=== PATIENT | male | born 1975 | race Caucasian/White ===

== ENCOUNTER 2024-11-25 08:20 | Emergency (ER) | payer OTHER, SELFPAY ==
--- NOTE | ~2024-11-25 | XR_ITS ---
EXAMINATION: XR foot LT min 3V DATE: 11/25/2024 09:00 INDICATION: Left heel and posterior ankle pain TECHNIQUE: Dorsoplantar, two oblique and lateral views of the left foot were obtained. COMPARISON: Left ankle radiograph dated 11/25/2024 FINDINGS: Bone alignment is normal. No fracture. Joint spaces are relatively preserved throughout. Achilles and plantar calcaneal spurs. No periosteal reaction or cortical erosions. Ankle joint effusion. Mild sof t tissue swelling about the lateral malleolus. IMPRESSION: 1. Left ankle joint effusion and posterior calcaneal enthesophytes. No acute osseous abnormality. Reviewed, dictated and finalized at location A. IMPRESSION: 1. Left ankle joint effusion and posterior calcaneal enthesophytes. No acute os seous abnormality.
--- NOTE | ~2024-11-25 | XR_ITS ---
EXAMINATION: XR ankle LT min 3V DATE: 11/25/2024 08:52 INDICATION: Posterior left ankle and heel pain TECHNIQUE: Anteroposterior, oblique, mortise, and lateral views of the left ankle were obtained. COMPARISON: None. FINDINGS: Alignment is normal. No fracture. Joint spaces are well maintained. Achilles and plantar calcaneal s purs. Large left ankle joint effusion with increased density anterior to the tibiotalar joint line. S oft tissue swelling about the lateral malleolus. IMPRESSION: 1. Left ankle joint effusion. No acute osseous abnormality. Reviewed, dictated and finalized at location A.
[2024-11-25 08:30] VITALS: BP 130/88; PULSE 72; RESP 16; TEMP 36.8; O2SAT 100
--- NOTE | 2024-11-25 08:30 | ED_ITS ---
HPI - General Adult General Chief complaint: Extremity Injury, Lower Stated complaint: Injured Left Ankle Time Seen by Provider: 11/25/24 08:30 Source: patient Mode of arrival: ambulatory Limitations: no limitations History of Present Illness HPI narrative: 49-year-old male patient presents to the [facility] with complaints of left ankle/ foot pain that started overnight last night. Patient states he did walk about a mi with his yesterday. Patient states this is not uncommon for him and does typically walk nightly. Patient states he woke up in the middle night with left foot/ ankle pain. Patient states he did take a hydrocodone that he had left over and put a lidocaine patch on it and wrapped it with an Kwesi wrap last night. Patient states it is more painful when trying to put weight and walk on it. Patient did have heart surgery for valve replacement back in August. Denies any chest pain or shortness of breath at this time. Denies any known injury that he is aware of. Related Data Home Medications ?Medication ?Instructions ?Recorded ?Confirmed ?Last Taken ?Type amlodipine 2.5 mg tablet mg 11/25/24 Unknown History atorvastatin 20 mg tablet mg 11/25/24 Unknown History ergocalciferol (vitamin D2) 1,250 11/25/24 Unknown History mcg (50,000 unit) capsule escitalopram oxalate 10 mg tablet mg 11/25/24 Unknown History hydrocodone 10 mg-acetaminophen tablet 11/25/24 Unknown History 325 mg tablet lisinopril 10 mg tablet mg 11/25/24 Unknown History lisinopril 20 mg tablet mg 11/25/24 Unknown History lisinopril 40 mg tablet mg 11/25/24 Unknown History warfarin 7.5 mg tablet mg 11/25/24 Unknown History Allergies Allergy/AdvReac Type Severity Reaction Status Date / Time No Known Allergies Allergy Mild Verified 11/25/24 08:37 Review of Systems Review of Systems: CONSTITUTIONAL: Denies fever, chills, or sweats. EYES: Denies visual changes, redness, or discharge. ENT: Denies rhinorrhea, congestion, sore throat, or otalgia. CARDIOVASCULAR: Denies chest pain, palpitations, or edema. RESPIRATORY: Denies cough or dyspnea. GASTROINTESTINAL: Denies abdominal pain, nausea, vomiting, or diarrhea. GENITOURINARY: Denies dysuria or hematuria. SKIN: Denies rash or itching. MUSCULOSKELETAL: Denies back pain, joint pain, or myalgia. Positive left foot and ankle pain NEUROLOGIC: Denies headache, numbness, or weakness. PSYCHIATRIC: Denies anxiety or depression. [facility] Past Medical History Medical History (Updated 11/25/24 @ 09:25 by MOSES Go) Hypertension Surgical History Surgical History (Updated 11/25/24 @ 08:45 by MOSES Go) Heart valve replaced Comments At the time of my signature I agree with nursing past medical history, surgical, social, and family history. There is no relevant family history pertinent to the presenting complaint. Exam Narrative: GENERAL: Well-appearing, well-nourished, and in no acute distress. HEAD: Normocephalic, atraumatic. EYES: PERRLA and EOMI. ENT: Nares clear, no rhinorrhea or epistaxis. Mucous membranes moist. NECK: Supple. No lymphadenopathy CHEST: Clear to auscultation. No respiratory distress. HEART: Regular rate and rhythm. No murmur heard. Normal peripheral pulses. ABDOMEN: Soft, nontender, nondistended, normal active bowel sounds. EXTREMITIES: Patient able to bear weight and ambulate with pain. patient is using a cane to ambulate. No surface trauma, Ecchymosis, erythema, lesions, ulcers or break in skin integrity. there is some swelling noted to the left side lateral malleolus and medial malleolus. The L foot is without obvious asymmetry or deformity when compared to the R foot. No bony step-off, nontender to palpation over the toes, midfoot. Pain to the left hindfoot no pain to the sole. pain with plantar/dorsiflexion, no pain with inversion/eversion. Distal motor and neurovascular status are intact SKIN: Warm, dry, no rash. NEURO: No focal deficits. Alert and oriented x3. Course Course Level of Care: Express Care Visit Reevaluation(s) Reevaluation #1: Re-evaluated patient notified him that the x-ray shows some calcaneal spurs and a ankle joint effusion which is most likely causing the pain. Discussed with him that I am hesitant to give him any anti-inflammatories or steroids given that he recently had heart surgery as well as he is currently on a heart monitor at this time. Discussed with him that he may take some [id number] Tylenol it is very important to elevate the foot, stay off of it for right now as well as use an Kwesi wrap to help support the joint at this time. Discussed with him he can call his primary doctor on Wednesday to discuss possible steroids or steroid injection to help with the pain. Patient verbalized understanding denies any other questions or concerns at this time. Date: 11/25/24 Time: 09:29 Vital Signs Vital signs: Vital Signs Temperature 36.8 C 11/25/24 08:30 Pulse Rate 72 11/25/24 08:30 Respiratory Rate 16 11/25/24 08:30 Blood Pressure 130/88 11/25/24 08:30 Pulse Oximetry 100 11/25/24 08:30 Temperature 36.8 C 11/25/24 08:30 Pulse Rate 72 11/25/24 08:30 Respiratory Rate 16 11/25/24 08:30 Blood Pressure 130/88 11/25/24 08:30 Pulse Oximetry 100 11/25/24 08:30 Vital signs reviewed. The patient has been informed that they may have pre-hypertension or Hypertension based on a BP reading in the department. I recommend that the patient call the primary care provider listed on their discharge instructions or a physician of their choice this week to arrange follow up for further evaluation of possible pre-hypertension or Hypertension Medical Decision Making MDM Narrative Medical decision making narrative: plan care for patient is to x-ray the left ankle / foot to assess for any acute fractures or stress fractures that could be causing the pain. I will reassess the patient once this has resulted. Differential Diagnosis Differential Diagnosis: Differential diagnosis: Foot fracture, crush injury, compartment syndrome, contusion, sprain, tendinitis,lisfranc sprain or fracture, avulsion fracture, grown toenail, diabetic ulcer. Vital Signs Vital Signs: Vital Signs Temperature 36.8 C 11/25/24 08:30 Pulse Rate 72 11/25/24 08:30 Respiratory Rate 16 11/25/24 08:30 Blood Pressure 130/88 11/25/24 08:30 Pulse Oximetry 100 11/25/24 08:30 Temperature 36.8 C 11/25/24 08:30 Pulse Rate 72 11/25/24 08:30 Respiratory Rate 16 11/25/24 08:30 Blood Pressure 130/88 11/25/24 08:30 Pulse Oximetry 100 11/25/24 08:30 Imaging Data Radiologist's impression: [facility] [address] [facility] [place] [address] XRay Report Signed Patient: Nando Chambers : 1975 MR#: [id number] Age: 49 Acct:[id number] Loc: [id number] ADM Date: 11/25/24Attending Dr: Ordering Physician: Emmy Vallejo ARTIST REPRESENTATIVE Date of Service: 11/25/24 Procedure(s): XR ankle LT min 3V Accession Number(s): [id number] cc: FRUIT PEELER PHYSICIAN; Emmy Vallejo ARTIST REPRESENTATIVE~ EXAMINATION: XR ankle LT min 3V DATE: 11/25/2024 08:52 INDICATION: Posterior left ankle and heel pain TECHNIQUE: Anteroposterior, oblique, mortise, and lateral views of the left ankle were obtained. COMPARISON: None. FINDINGS: Alignment is normal. No fracture. Joint spaces are well maintained. Achilles and plantar calcaneal spurs. Large left ankle joint effusion with increased density anterior to the tibiotalar joint line. Soft tissue swelling about the lateral malleolus. IMPRESSION: 1. Left ankle joint effusion. No acute osseous abnormality. Reviewed, dictated and finalized at location A. Critical Care Time Critical Care Time Critical Care Time: No Discharge Plan Discharge Clinical Impression: Effusion of left ankle, Bone spur of foot Patient Disposition: Home Condition: Stable Instructions: Antibiotic Form, Heel Spur (ED) Additional Instructions: Avoid weight bearing until the pain subsides. Ice to the area 20-30 minutes 4-6 times a day Elevate above heart Elastic wrap or orthopedic splint as directed for comfort for the next 5-7 days cane/Crutches as directed if needed Tylenol for lesser pain Follow up with your primary care provider if the condition is not improving within 1 week or sooner if the Condition worsens with numbness, tingling, decrease sensation with weakness to seek ER. may want to call discussed with your doctor about low-dose steroids or a steroid injection to help with inflammation and pain. Due to your heart condition no steroids have been prescribed to you today. Patient Language: Indonesian Prescriptions: No Action atorvastatin 20 mg tablet warfarin 7.5 mg tablet lisinopril 20 mg tablet amlodipine 2.5 mg tablet hydrocodone-acetaminophen 10-325 mg tablet lisinopril 10 mg tablet ergocalciferol (vitamin D2) 1,250 mcg (50,000 unit) capsule lisinopril 40 mg tablet escitalopram oxalate 10 mg tablet Follow-up/Referrals: PHYSICIAN,FRUIT PEELER [Primary Care Provider] - Time of Disposition: 09:25
== END 2024-11-25 09:29 | disposition home or self-care (01) ==
PROVIDERS: Emergency Provider Nurse Practitioner Family
DX: M25.472 Effusion, left ankle (principal); M76.892 Other specified enthesopathies of left lower limb, excluding foot; I10 Essential (primary) hypertension; Z79.899 Other long term (current) drug therapy; Z79.891 Long term (current) use of opiate analgesic; Z79.01 Long term (current) use of anticoagulants
CPT/HCPCS: 73610; 73630; 99213; G0463